=== PATIENT | male | born 1955 | race Two or more races ===

== ENCOUNTER → 2025-04-01 | Outpatient (CLI) | payer MEDICARE, MEDICAID, SELFPAY ==
--- NOTE | 2025-04-01 09:00 | XR_ITS ---
Examination: CT brain head without contrast. 2-D sagittal coronal reconstructions Date and time of exam: April 01, 2025, 0913 hours, comparison January 01, 2022 INDICATIONS: Headaches beginning 6 months ago, history subarachnoid hemorrhage left parietal sulci on CT brain scan January 01, 2022 CTDI: vol (mGy): 57.4 DLP: (mGycm): 1159 Technique: Multiple CT axial sections of the brain have been obtained, 5 mm slice thickness. Contrast has not been administered. 2-D sagittal, coronal reconstructions have been obtained Low dose protocols were performed. One or more of the following dose reduction techniques were used; automated exposure control, adjustment of the mA and/or KV according to patient size, use of iterative reconstruction technique. Findings: No significant ventricular enlargement. Intra-axial or extra-axial hemorrhage density is not seen. No mass effect or midline shift Basal cisterns are not remarkable. Fourth ventricle is midline. Cranial vault intact. Impression: Negative for acute hemorrhage, mass effect or midline shift Acute left sphenoid sinusitis
== END | disposition home or self-care (01) ==
PROVIDERS: PCP Internal Medicine; Referring Provider Internal Medicine; Visit Provider Internal Medicine
DX: J01.30 Acute sphenoidal sinusitis, unspecified (principal)
CPT/HCPCS: 70450

== ENCOUNTER 2025-04-05 11:42 | Emergency (ER) | payer MEDICARE, MEDICAID, SELFPAY ==
[2025-04-05 12:13] VITALS: BP 125/70; PULSE 81; RESP 16; TEMP 36.8; O2SAT 97
--- NOTE | 2025-04-05 12:24 | EDNOTE_ITS ---
ED Allergic Reaction RME/HPI General Chief complaint: Allergic Reaction Stated complaint: ALLERGIC REACTION, GEN RASH, TIGHTNESS IN THROAT Time Seen by Provider: 04/05/25 12:07 Arrival date/time: 04/05/25 11:42 RME / HPI RME / HPI narrative: 69-year-old male here for evaluation of allergic reaction with symptoms ongoing for the past 3 days approximately. He does not know of anything new relief that he has ingested. He states that he took an old enalapril tablet prior to onset of symptoms but is currently taking enalapril 5 mg baseline. 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 Notes that the rash is generalized to body and now is feeling mild sensation of swelling in throat for the past day. Denies other acute symptoms at this time. Related Data Previous Rx's ?Medication ?Instructions ?Recorded diphenhydramine HCl 25 mg capsule 50 mg (2 x 25 mg) PO Q6H PRN 04/05/25 (Aler-Cap) allergic reaction #15 caps prednisone 10 mg tablet See Taper PO QDAY #15 tabs 1 Allergies Allergy/AdvReac Type Severity Reaction Status Date / Time No Known Allergies Allergy Verified 04/05/25 11:45 Review of Systems Review of Systems Systems Reviewed: All systems reviewed, normal except as documented Past Medical History Past Medical History Comments PMH COMMENT: Hypertension ED Exam Narrative Physical exam: Constitutional: Awake, alert, elderly. Does not appear in acute distress at present HEENT: Normocephalic, atraumatic, extraocular movements intact. Very mild swelling noted to lips. Mild swelling noted to eyelids. Neck: Supple CV: Regular rate and rhythm, no murmurs/rubs/gallops Lungs: Clear to auscultation BL, no respiratory distress. No stridor noted. No wheezing noted. Abd: Soft, nontender, nondistended. Neuro: AAOx3, no acute neuro deficit noted. Skin: There is a generalized erythematous urticarial rash to body. Course Quality Measures none Orders Category Date Time Status Dexamethasone Inj [Decadron Inj] Med 04/05/25 12:23 Discontinued 10 mg IM X1 ONE DiphenhydrAMINE INJ [Benadryl Inj] Med 04/05/25 12:23 Discontinued 50 mg IM X1 ONE Famotidine [Pepcid] Med 04/05/25 12:23 Discontinued 40 mg PO X1 ONE Vital Signs Vital signs: Vital Signs Temperature 98.2 F 04/05/25 12:13 Pulse Rate 81 04/05/25 12:13 Respiratory Rate 16 04/05/25 12:13 Blood Pressure 125/70 04/05/25 12:13 Pulse Oximetry (%) 97 04/05/25 12:13 Oxygen Delivery Method Room Air 04/05/25 12:13 Allergic Reaction MDM Narrative MDM Narrative:: 69-year-old male came in for evaluation of allergic reaction with rash ongoing for the last 3 days with itching noted to throat. No respiratory distress vitally stable. Given dose of dexamethasone with Benadryl and Pepcid. Will give course of prednisone for home for the next few days tapering dose. Is stable for discharge, advised on close outpatient follow-up with PCP and strict return precautions for any worsening symptoms. Patient data External records reviewed:: [facility] previous records Clinical information provided by:: patient Social determinants that could affect healthcare access:: none Patient has the following chronic illnesses:: Hypertension How is presenting disease/condition affected by chronic disease/condition?: uneffected by Evaluation data The following diagnostics were reviewed and interpreted by me:: other (specify) Lab and/or radiology exams considered but not ordered:: None Interpretation Summary: As above Medications / Prescriptions Medications or Prescriptions considered but not ordered:: None Medication administrations:: Medication Administration History Discontinued Medications Dexamethasone Sodium Phosphate (Dexamethasone Sod Phos Inj 10 Mg/Ml Vial) 10 mg IM X1 ONE Stop: 04/05/25 12:24 Last Admin: 04/05/25 13:01 Dose: 10 mg Documented By: MEENU Diphenhydramine HCl (Diphenhydramine Inj 50 Mg/Ml Vial) 50 mg IM X1 ONE Stop: 04/05/25 12:24 Last Admin: 04/05/25 13:00 Dose: 50 mg Documented By: MEENU Famotidine (Famotidine 20 Mg Tablet) 40 mg PO X1 ONE Stop: 04/05/25 12:24 Last Admin: 04/05/25 13:00 Dose: 40 mg Documented By: MEENU Dexamethasone, Benadryl, Pepcid Consultations Consultation(s) initiated? (list below): No Diagnosis Differential Diagnosis allergic reaction: anaphylaxis, allergic reaction, angioedema, contact dermatitis, adverse reaction to drug, viral enanthem and urticaria Most likely diagnosis given after review of the tests above:: Allergic reaction?urticarial rash (unclear origin) Admission Indicated Admission indicated?: not indicated Admission Request Was there a request for admission?: No Disposition Plan Disposition Plan: Discharge Discharge Attestation Discharge Attestation: The patient and all family members were given an opportunity to ask questions and understood the discharge instructions. Discharge instructions specifically effects, indications for sooner follow up or return to the emergency department, and the expected course of current diagnosis. Patient condition: Stable Discharge Plan Plan Patient Disposition: HOME (Self Care) Patient condition on transfer: Stable Prescriptions/Referrals Prescriptions/Med Rec: New prednisone 10 mg tablet See Taper PO QDAY Qty: 15 0RF Taper: Prednisone Taper 50 mg DAILY for 1 Day and 0 Hour 40 mg DAILY for 1 Day and 0 Hour 30 mg DAILY for 1 Day and 0 Hour 20 mg DAILY for 1 Day and 0 Hour 10 mg DAILY for 1 Day and 0 Hour Rx Instructions: Take 50 mg day 1, 40 mg day 2, 30 mg day 3, 20 mg day 4, 10 mg day 5. diphenhydramine HCl [Aler-Cap] 25 mg capsule 50 mg PO Q6H PRN (Reason: allergic reaction) Qty: 15 0RF Problem List Clinical Impression: Allergic reaction, Urticaria Patient/Caregiver Discharge Instructions Education Materials: ED Hives (Adult) Print Language: [place] Stand Alone Forms: Jeannette Award Info., Patient Portal Info Letter
[2025-04-05] MEDS: FAMOTIDINE 20 MG TABLET 40 MG PO (13:00)
[2025-04-05] MEDS: DEXAMETHASONE SOD PHOS INJ 10 MG/ML VIAL IM (13:01)
== END 2025-04-05 13:19 | disposition home or self-care (01) ==
PROVIDERS: Emergency Provider Family Medicine; PCP Physician Assistant
DX: L50.0 Allergic urticaria (principal)
CPT/HCPCS: 96372; 99283; J1100; J1200; A9270